=== PATIENT | male | born 1975 | race Caucasian/White ===

== ENCOUNTER 2016-07-18 19:31 | Emergency (ER) | payer MEDICARE ==
--- NOTE | ~2016-07-18 | CR263 ---
[facility] A Service of [facility] RADIOLOGY TEXT RESULTS PATIENT: ELIDA MARTINEZ LOCATION: [facility] : 79 UNIT #: [id number] AGE: [address]: PINO AVALOS APRN SEX: M ORDER DR: [id number] [facility] [address] [place], [place] [address] [id number] E MR#: [id number] Acc #: [id number] NAME: ELIDA MARTINEZ : 1975 SEX: M STUDY DATE/TIME: 07/18/20162001 UNIT: [facility] ROOM: STUDY DESCRIPTION: CR Toe 2 Views Great Rt Attending Physician: Pino Avalos Aprn Ordering Physician: Pino Avalos Aprn Primary Care Physician: Melody Jean A.P.R.N. MEDICAL IMAGING REPORT This report is preliminary unless electronic signature is present EXAM Right great toe, 3 views, 07/18/2016, 2002 hours. CLINICAL HISTORY Patient complains of pain, redness, and swelling of the right great toe after pipes fell on his toe today. COMPARISON None FINDINGS AP, lateral, and oblique views demonstrate overall normal bone density. There is no definite acute fracture or dislocation. There is a thin sliver of bone along the plantar surface of the tuft of the distal phalanx of the great toe which could represent a tiny fracture fragment. A bipartite sesamoid bone deep to the first metatarsal medially is noted and likely developmental. IMPRESSION 1. Question tiny sliver or bone fragment along the plantar aspect of the distal phalanx of the great toe which could represent a tiny fracture fragment. This is not appreciated on the AP or oblique view. 2. Bipartite sesamoid deep to the first metatarsal is felt developmental rather than representing a fracture. Dictated by... Lani Lake M.D. THIS IS AN ELECTRONICALLY VERIFIED REPORT Lani Lake M.D. at 07/19/2016 6:58 PM SMM/tmw [facility] A Service of [facility] RADIOLOGY TEXT RESULTS PATIENT: ELIDA MARTINEZ LOCATION: [facility] : 79 UNIT #: [id number] AGE: [address]: PINO AVALOS APRN SEX: M ORDER DR: TD: 07/19/2016 07:33 JOB #: [id number] MEDICAL IMAGING REPORT Page 1 of 1 COPY
[~2016-07-18 19:31] MED LIST: BACTRIM DS TABL1 TA1 PO; CYMBALTA30 MG PO; DEPAKOTE250 MG PO; FLEXERIL10 MG PO; FLOMAX0.4 M1 DOB; KEPPRA750 MG PO; LEXAPRO PO; LORTAB 5/500 TA1 TA1 PO; LORTAB 7.5-5001 TAB PO; LORTAB 7.51 TAB DOB; PHENERGAN PO; PREDNISONE10 MG/DOSE PO; PRILOSEC PO; TYLENOL #3 PO
== END 2016-07-18 21:05 | disposition home or self-care (01) ==
LOC: CED 19:31 → CFTX 19:31
DX: S92.421A Displaced fracture of distal phalanx of right great toe, initial encounter for closed fracture (principal); F17.210 Nicotine dependence, cigarettes, uncomplicated; Z23 Encounter for immunization; Z79.891 Long term (current) use of opiate analgesic; Z79.899 Other long term (current) drug therapy; W20.8XXA Other cause of strike by thrown, projected or falling object, initial encounter; Y92.009 Unspecified place in unspecified non-institutional (private) residence as the place of occurrence of the external cause
CPT/HCPCS: 29405; 73660; 90471; 90715; 99283